=== PATIENT | female | born 1970 | race Caucasian/White ===

== ENCOUNTER → 2018-04-16 12:22 | Outpatient (CLI) | payer BC, SELFPAY ==
[2018-04-16 13:23] LABS: Alanine Aminotransferase 29 U/L (12-78); Albumin Level 3.4 gm/dL (3.4-5.0); Albumin/Globulin Ratio 0.8 (1.1-1.8); Alkaline Phosphatase 95 U/L (46-116); Anion Gap 13.2 mEq/L (5-15); Aspartate Amino Transferase 18 U/L (15-37); Bilirubin,Total 0.4 mg/dL (0.2-1.0); Blood Urea Nitrogen 12 mg/dL (7-18); Calcium 9.9 mg/dL (8.5-10.1); Carbon Dioxide 29 mmol/L (21.0-32.0); Chloride 96 mmol/L (98-107); Chol/HDL Ratio 6.7 (1-3.5); Cholesterol 248 mg/dL (140-200); Creatinine,Serum 0.71 mg/dL (0.55-1.02); Estimated Glomerular Filt Rate 88 ml/min (>60); GFR (African American) 106 ML/MIN (>60); Globulin 4.1 gm/dl (1.3-3.2); Glucose 363 mg/dL (74-106); HDL Cholesterol 37 mg/dL (29-89); LDL Cholesterol 138 mg/dL (0-130); Potassium 4.2 mmoL/L (3.5-5.1); Sodium 134 mmol/L (136-145); Total Protein,Serum 7.5 gm/dL (6.4-8.2); Triglycerides 363 mg/dL (30-200); VLDL Cholesterol 73 mg/dL (0-40)
== END ==
PROVIDERS: Visit Provider Nurse Practitioner Family
DX: Z00.00 Encounter for general adult medical examination without abnormal findings (principal); I10 Essential (primary) hypertension
CPT/HCPCS: 36415; 80053; 80061

== ENCOUNTER → 2018-05-06 11:02 | Outpatient (CLI) | payer BC, SELFPAY ==
--- NOTE | 2018-05-06 11:07 | MM_ITS ---
MM Dig screening mamm BI w/CAD CAD Screening COMPARISON: Digital mammograms 05/09/2015 and 04/22/2017 INDICATION: There is no personal or family history of breast cancer. TECHNIQUE: Standard CC and MLO images were obtained. R2 CAD reviewed. FINDINGS: The breasts are composed primarily of fat with minimal scattered fiber glandular densities in each breast. There is no new or suspicious lesion in either breast and no suspicious microcalcifications. IMPRESSION: Fibrofatty parenchyma with no suspicious lesion seen BI-RADS Category: 1 Negative RECOMMENDED FOLLOW-UP: 1YR - 1 YEAR FOLLOW-UP (A letter has been sent to the patient regarding results of the study.)
[2018-05-06 12:57] LABS: Hemoglobin A1C 10.9 % (0.0-7.0)
== END ==
PROVIDERS: Family Provider Nurse Practitioner Family; PCP Internal Medicine Adolescent Medicine; Visit Provider Nurse Practitioner Family
DX: Z12.31 Encounter for screening mammogram for malignant neoplasm of breast (principal)
CPT/HCPCS: 36415; 77067; 83036

== ENCOUNTER → 2019-02-26 13:09 | Outpatient (CLI) | payer BC, SELFPAY ==
[2019-02-26 14:36] LABS: Hemoglobin A1C 9.2 % (0.0-7.0)
[2019-02-26 14:50] LABS: Alanine Aminotransferase 21 U/L (12-78); Albumin Level 3.3 gm/dL (3.4-5.0); Albumin/Globulin Ratio 0.8 (1.1-1.8); Alkaline Phosphatase 90 U/L (46-116); Anion Gap 16.4 mEq/L (5-15); Aspartate Amino Transferase 10 U/L (15-37); Bilirubin,Total 0.5 mg/dL (0.2-1.0); Blood Urea Nitrogen 13 mg/dL (7-18); Calcium 9.6 mg/dL (8.5-10.1); Carbon Dioxide 24 mmol/L (21.0-32.0); Chloride 101 mmol/L (98-107); Chol/HDL Ratio 3.9 (1-3.5); Cholesterol 157 mg/dL (140-200); Creatinine,Serum 0.77 mg/dL (0.55-1.02); Estimated Glomerular Filt Rate 80 ml/min (>60); Free Thyroxine Index 3.3 ug/dL (5.93-13.13); GFR (African American) 96 ML/MIN (>60); Globulin 4.2 gm/dl (1.3-3.2); Glucose 209 mg/dL (74-106); HDL Cholesterol 40 mg/dL (29-89); LDL Cholesterol 86 mg/dL (0-130); Magnesium 1.7 mg/dL (1.4-2.2); Potassium 4.4 mmoL/L (3.5-5.1); Sodium 137 mmol/L (136-145); T4 (Thyroxine) 10.8 ug/dl (4.7-13.3); Thyroid Stimulating Hormone 1.64 uIU/ml (0.358-3.740); Total Protein,Serum 7.5 gm/dL (6.4-8.2); Triglycerides 155 mg/dL (30-200); Triiodothryronine (T3) Uptake 31 % (31-39); VLDL Cholesterol 31 mg/dL (0-40)
[2019-02-28 18:28] LABS: Vitamin B12 563 pg/mL (232-1245)
== END ==
PROVIDERS: PCP Internal Medicine Adolescent Medicine; Visit Provider Internal Medicine Adolescent Medicine
DX: E11.9 Type 2 diabetes mellitus without complications (principal); R53.82 Chronic fatigue, unspecified
CPT/HCPCS: 36415; 80053; 80061; 82607; 82652; 83036; 83735; 84436; 84443; 84479

== ENCOUNTER → 2019-11-11 09:52 | Outpatient (CLI) | payer BC, SELFPAY ==
--- NOTE | 2019-11-11 09:54 | MM_ITS ---
PROCEDURE: MM DIG SCREENING MAMM BI W/CAD CLINICAL INDICATION: SCREENING There is no personal or family history of breast cancer COMPARISON: [facility] DIG MAMM-SCREEN KAROLYN from 05/09/2015 [facility] DIG MAMM-SCREEN KAROLYN W/CAD from 04/22/2017 [facility] MM Dig screening mamm BI w/CAD from 05/06/2018 TECHNIQUE: Standard CC and MLO images were obtained. R2 CAD reviewed. FINDINGS: The breasts are composed primarily of fat with minimal scattered fibroglandular densities throughout each breast. There are couple of benign-appearing microcalcifications right breast. There is no suspicious lesion and no suspicious microcalcifications. IMPRESSION: Fatty type breast parenchyma with no suspicious lesions seen BI-RAD Category: 2 Benign Finding(s) FOLLOW-UP: 1YR 1 Year Follow-up (A letter has been sent to the patient regarding results of the study.) Dictated by: Dr. Hany Ugalde MD 11/15/2019 10:[address] Hany Ugalde MD in [place] 11/15/2019 10:40
== END ==
PROVIDERS: PCP Internal Medicine Adolescent Medicine; Visit Provider Internal Medicine Adolescent Medicine
DX: Z12.31 Encounter for screening mammogram for malignant neoplasm of breast (principal)
CPT/HCPCS: 77067

== ENCOUNTER → 2020-07-24 11:30 | Outpatient (CLI) | payer BC, SELFPAY ==
[2020-07-24 12:19] LABS: Hemoglobin A1C 7.2 % (4.0-6.0)
[2020-07-24 12:37] LABS: Chloride 101 mmol/L (98-107); Potassium 4.5 mmoL/L (3.5-5.1); Sodium 139 mmol/L (136-145)
[2020-07-24 12:40] LABS: Alanine Aminotransferase 30 U/L (12-78); Albumin Level 4.3 g/dl (3.5-5.0); Albumin/Globulin Ratio 1.3 (1.1-1.8); Alkaline Phosphatase 108 U/L (38-126); Anion Gap 16.5 mEq/L (5-15); Aspartate Amino Transferase 31 U/L (14-36); Bilirubin,Total 0.4 mg/dl (0.2-1.3); Blood Urea Nitrogen 16 mg/dl (7-17); Calcium 10.3 mg/dl (8.4-10.2); Carbon Dioxide 26 mmol/L (22.0-30.0); Chol/HDL Ratio 3.5 (1-3.5); Cholesterol 187 mg/dl (140-200); Estimated Glomerular Filt Rate 106 ml/min (>60); GFR (African American) 128 ML/MIN (>60); Globulin 3.3 g/dL (1.3-3.2); Glucose 135 mg/dl (74-100); HDL Cholesterol 53 mg/dl (40-60); Total Protein,Serum 7.6 g/dl (6.3-8.2); Triglycerides 178 mg/dl (30-150); VLDL Cholesterol 36 mg/dL (0-40)
[2020-07-24 12:52] LABS: Direct LDL Cholesterol 114.84 mg/dL (100-129)
== END ==
PROVIDERS: Visit Provider Internal Medicine Adolescent Medicine
DX: E11.9 Type 2 diabetes mellitus without complications (principal)
CPT/HCPCS: 36415; 80053; 80061; 82043; 83036

== ENCOUNTER → 2021-03-02 12:45 | Outpatient (CLI) | payer BC, SELFPAY ==
--- NOTE | 2021-03-02 12:52 | XR_ITS ---
PROCEDURE: XR KNEE LT 3V CLINICAL INDICATION: LT MEDIAL KNEE PAIN COMPARISON: No exams were available for comparison FINDINGS: No acute fractures or dislocations. Bone density is normal. Tricompartmental degenerative changes with joint space loss, worse in the medial compartment. Subchondral sclerosis, and tricompartmental osteophyte formation is noted. No suprapatellar joint effusion. Quadriceps tendon enthesopathy is noted. Fabella is noted. No other soft tissue abnormality. IMPRESSION: Tricompartmental degenerative changes as described above. No acute fractures or dislocations. Dictated by: Shelby River 03/02/2021 15:03 [place] River in [place] 03/02/2021 15:03
== END ==
PROVIDERS: PCP Internal Medicine Adolescent Medicine; Visit Provider Internal Medicine Adolescent Medicine
DX: M25.562 Pain in left knee (principal)
CPT/HCPCS: 73562

== ENCOUNTER → 2021-04-02 08:59 | Outpatient (CLI) | payer BC, SELFPAY ==
--- NOTE | 2021-04-02 09:02 | XR_ITS ---
PROCEDURE: XR KNEE LT 4V CLINICAL INDICATION: Lt knee pain COMPARISON: CR XR KNEE LT 3V from 03/02/2021 FINDINGS: No fracture or dislocation. No lytic or blastic change. There is normal mineralization. There are mild osteoarthritic changes involving all 3 compartments greatest at the medial compartment. Other findings:There is mild lateral tibial subluxation of approximately 5 mm . 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
== END ==
PROVIDERS: PCP Internal Medicine Adolescent Medicine; Visit Provider Orthopaedic Surgery
DX: M25.562 Pain in left knee (principal)
CPT/HCPCS: 73564

== ENCOUNTER → 2022-06-25 10:20 | Outpatient (CLI) | payer BC, SELFPAY ==
--- NOTE | 2022-06-25 10:24 | MM_ITS ---
PROCEDURE INFORMATION: Exam: MG Bilateral Screening 3D Mammography Exam date and time: 06/25/2022 10:23 AM Age: 51 years old Clinical indication: Screening examination TECHNIQUE: Imaging protocol: Bilateral Screening tomosynthesis and 2D mammography including computer-aided detection (CAD) when performed. COMPARISON: 1. MG MM DIG SCREENING MAMM BI W/CAD 11/11/2019 10:04 AM 2. MG [facility] MM Dig screening mamm BI w/CAD 05/06/2018 11:12 AM FINDINGS: MAMMOGRAPHY: Breast composition: The breasts are almost entirely fatty. Mass: None. Architectural distortion: None. Calcifications: No suspicious calcifications. Asymmetric density: None. Skin thickening: None. Axillary adenopathy: None. IMPRESSION: No mammographic evidence of malignancy. Annual screening is recommended unless otherwise clinically indicated. ASSESSMENT: BI-RADS Category 1: Negative
== END ==
PROVIDERS: PCP Internal Medicine Adolescent Medicine; Visit Provider Internal Medicine Adolescent Medicine
DX: Z12.31 Encounter for screening mammogram for malignant neoplasm of breast (principal)
CPT/HCPCS: 77063; 77067

== ENCOUNTER → 2022-07-22 16:41 | Outpatient (CLI) | payer BC, SELFPAY | PROVIDERS: PCP Internal Medicine Adolescent Medicine; Visit Provider Internal Medicine | DX: Z01.812 Encounter for preprocedural laboratory examination (principal); Z20.822 Contact with and (suspected) exposure to COVID-19; Z12.11 Encounter for screening for malignant neoplasm of colon | CPT/HCPCS: C9803; U0003; U0005 ==

== ENCOUNTER 2022-07-24 10:11 | Day surgery (SDC) | payer BC, SELFPAY ==
[2022-07-22 10:53] VITALS: BMI 34.7
[2022-07-24 10:35] VITALS: BP 148/80; PULSE 74; RESP 17; TEMP 36.6; O2SAT 97
[2022-07-24 10:47] LABS: POC Glucose,Bedside 125 (70-110)
--- NOTE | 2022-07-24 11:35 | EXP.ANES.CKL ---
PFSH PFSH Medical History (Updated 07/24/22 @ 10:35 by Shaylee Alicea, RN) Normal colonoscopy Surgical History (Updated 07/24/22 @ 10:35 by Shaylee Alicea, RN) History of pancreatectomy Family History (Updated 07/24/22 @ 10:33 by Shaylee Alicea, RN) Other Colon cancer Congestive heart failure Heart disease Social History Smoking Status: Never smoker second hand exposure: No alcohol intake: never substance use type: denies use current occupational status: employed household members: spouse housing: house current occupation: [employer] current occupational exposures/hazards: No caffeine: Yes
[2022-07-24 11:39] VITALS: O2SAT 97
[2022-07-24 12:02] VITALS: BP 100/66; PULSE 78; RESP 16; TEMP 36.9; O2SAT 98
--- NOTE | 2022-07-24 12:02 | HMH.SCOPE ---
Procedure: Date: 07/24/22 Patient Date of :: 1970 Procedure Performed:: Colonoscopy Indications:: The patient is a 51 year old who presents for surveillance colonoscopy for history of colon polyps. There is a family history of colon cancer Performing Provider:: Angel Pillai MD Referring Provider:: Kourtney Menjivar APRN Sedation:: See RN notes Procedure:: After placing the patient in the left lateral decubitus position, the colonoscopy was gently inserted into the rectum and under direct visualization advanced to the cecum which was identified by transillumination in the right lower quadrant, identification of the ileocecal valve, appendiceal orifice, and cecal strap. Color, texture, mucosa, and anatomy of the colon were carefully examined with the scope. Findings:: Anal canal: normal Rectum: Internal hemorrhoids. Sessile polyp 4 mm in size. Removed with cold snare polypectomy Sigmoid colon: normal without polyps or inflammatory changes Descending colon: normal without polyps or inflammatory changes Splenic flexure: normal Transverse colon: normal without polyps or inflammatory changes Hepatic flexure: Diverticulosis Ascending colon: Sessile polyp 6-7 mm in size. Removed with cold snare polypectomy Cecum: normal Terminal ileum: not visualized Impression: Polyp of ascending colon and rectum Diverticulosis Recommendations:: Await pathology results Repeat colonoscopy in 3 years Complications:: none Estimated blood obtained (mL): 0
[2022-07-24 12:12] VITALS: BP 110/73; PULSE 78; RESP 16; TEMP 36.9; O2SAT 96
[2022-07-24 12:22] VITALS: BP 140/78; PULSE 77; RESP 18; TEMP 36.9; O2SAT 100
[2022-07-24 12:32] VITALS: BP 128/88; PULSE 72; RESP 18; TEMP 36.9; O2SAT 99
== END 2022-07-24 12:46 | disposition home or self-care (01) ==
PROVIDERS: PCP Internal Medicine Adolescent Medicine; Visit Provider Internal Medicine
PROC: 0DJD8ZZ Inspection of Lower Intestinal Tract, Via Natural or Artificial Opening Endoscopic (ICD-10-PCS; CPT 45378; principal; 2022-07-24 11:30)
DX: Z12.11 Encounter for screening for malignant neoplasm of colon (principal); K63.5 Polyp of colon; Z86.010 Personal history of colon polyps
CPT/HCPCS: 45385; 82962

== ENCOUNTER → 2023-06-26 10:00 | Outpatient (CLI) | payer BC, SELFPAY ==
--- NOTE | 2023-06-26 10:04 | MM_ITS ---
PROCEDURE INFORMATION: Exam: MG Bilateral Screening 3D Mammography Exam date and time: 06/26/2023 10:17 AM Age: 52 years old Clinical indication: Screening. No family history of breast cancer. TECHNIQUE: Imaging protocol: Bilateral Screening tomosynthesis and 2D mammography including computer-aided detection (CAD) when performed. COMPARISON: 1. MG MM DIG SCREENING MAMM BI W/CAD 06/25/2022 10:23 AM 2. MG MM DIG SCREENING MAMM BI W/CAD 11/11/2019 10:04 AM 3. MG [facility] MM Dig screening mamm BI w/CAD 05/06/2018 11:12 AM 4. MG [facility] DIG MAMM-SCREEN KAROLYN W/CAD 04/22/2017 8:40 AM FINDINGS: MAMMOGRAPHY: Breast composition: The breasts are almost entirely fatty. Mass: None. Architectural distortion: None. Calcifications: No suspicious calcifications. Asymmetric density: None. Skin thickening: None. Axillary adenopathy: None. IMPRESSION: No mammographic evidence of malignancy. Annual screening is recommended unless otherwise clinically indicated. ASSESSMENT: BI-RADS Category 1: Negative
== END ==
PROVIDERS: PCP Internal Medicine Adolescent Medicine; Visit Provider Internal Medicine Adolescent Medicine
DX: Z12.31 Encounter for screening mammogram for malignant neoplasm of breast (principal)
CPT/HCPCS: 77063; 77067

== ENCOUNTER 2024-01-26 15:42 | Outpatient (CLI) | payer BC, SELFPAY ==
--- NOTE | 2024-01-26 15:55 | XR_ITS ---
FINAL REPORT CLINICAL HISTORY: RT WRIST PAIN FINDINGS: AP, oblique, and lateral views of the right wrist were obtained. There is no prior exam for comparison. There is no acute fracture or dislocation. The joint spaces are preserved. The soft tissues are normal. IMPRESSION: No acute osseous abnormality of the right wrist. If pain persists, MR is recommended. Authenticated and ERN
--- NOTE | 2024-01-26 15:55 | XR_ITS ---
FINAL REPORT CLINICAL HISTORY: RT HAND PAIN FINDINGS: AP, lateral and oblique views of the right hand were obtained. There is no prior exam for comparison. There is no acute fracture or dislocation. The joint spaces are preserved. The soft tissues are normal. IMPRESSION: No acute osseous abnormality of the right hand. Authenticated and ERN
--- NOTE | 2024-01-26 15:55 | XR_ITS ---
FINAL REPORT CLINICAL HISTORY: Right shoulder pain. FINDINGS: 3 views of the right shoulder were obtained. There is no acute fracture or dislocation. There is mild acromioclavicular joint degenerative disease without evidence of acromioclavicular separation. No acute soft tissue abnormality. IMPRESSION: No acute osseous abnormality of the right shoulder. Authenticated and ERN
== END 2024-01-26 23:59 ==
LOC: RAD 15:43
PROVIDERS: PCP Internal Medicine Adolescent Medicine; Visit Provider Internal Medicine Adolescent Medicine
DX: M25.511 Pain in right shoulder (principal); M25.531 Pain in right wrist; M79.641 Pain in right hand
CPT/HCPCS: 73030; 73110; 73130

== ENCOUNTER 2024-03-17 09:39 | Outpatient (CLI) | payer OTHER, SELFPAY ==
[2024-03-17 10:12] LABS: Basophils # 0.1 K/mm3 (0-0.2); Basophils % 1.2 % (0.1-2.0); Eosinophils # 0.3 K/mm3 (0.0-0.4); Eosinophils % 2.4 % (0.1-12.0); Hematocrit 43.7 % (37.0-47.0); Hemoglobin 14.1 g/dL (12.2-16.2); Lymphocytes # 4.9 K/mm3 (0.7-4.5); Lymphocytes % 40.8 % (10-50); Mean Corpuscular HGB Conc 32.4 g/dL (31.8-35.4); Mean Corpuscular Volume 95.6 fl (81-99); Mean Platelet Volume 8.1 fl (7.4-10.4); Monocytes # 0.8 K/mm3 (0.1-1.0); Monocytes % 6.6 % (1.7-9.3); Neutrophils # 5.9 K/mm3 (1.8-7.8); Platelet Count 421 K/mm3 (142-424); Red Blood Count 4.57 M/mm3 (4.20-5.40); Red Cell Distribution Width 13.4 % (11.5-17.5)
== END 2024-03-17 23:59 ==
LOC: LAB 09:40
PROVIDERS: PCP Internal Medicine Adolescent Medicine; Visit Provider Internal Medicine Medical Oncology
DX: D72.820 Lymphocytosis (symptomatic) (principal)
CPT/HCPCS: 36415; 85025

== ENCOUNTER 2024-04-01 08:59 | Day surgery (SDC) | payer OTHER, SELFPAY ==
[2024-03-31 10:00] VITALS: BMI 34.3
[2024-04-01] MEDS: LACTATED RINGERS 1000ML 1,000 ML 25 ML IV (09:28)
[2024-04-01 09:29] VITALS: BP 152/84; PULSE 79; RESP 18; TEMP 36.7; O2SAT 96
[2024-04-01 09:38] LABS: POC Glucose,Bedside 175 (70-110)
--- NOTE | 2024-04-01 10:07 | EXP.ANES.CKL ---
[facility] Disclaimer: The information contained in this section may have been updated after the patient was seen, as this information can be updated by other users. Medical History Normal colonoscopy Surgical History History of pancreatectomy Family History Other Colon cancer Congestive heart failure Heart disease Social History Smoking Status: Never smoker second hand exposure: No alcohol intake: never substance use type: denies use current occupational status: unemployed Travel in the last 8 weeks: None household members: spouse housing: house current occupation: DIRECTOR OF [employer] current occupational exposures/hazards: No caffeine: Yes do you feel safe at home: Yes victim of physical abuse: No victim of emotional abuse: No victim of sexual abuse: No would you like helpful sources: No [facility] Anesthesia Checklist Patient Identification Patient Identification: Verbal (Name & ) Structural Data Admitted From: Home Planned Operative Procedure/s: egd,colonoscopy Consent for Planned Operative Procedure(s) Verified: Yes Airway Assessment Mallampati Score:: Class II C-Spine Mobility Assessed: Yes TMJ Mobility Assessed: Yes Dentition: Good Dentition Neurological Assessment Level of Consciousness: Awake, Alert and Appropriate Anesthesia Plan Anesthesia Risk discussed: Yes Anesthesia Plan: Verified ASA Class: II Anesthesia Type: MAC
[2024-04-01 10:21] VITALS: O2SAT 96
--- NOTE | 2024-04-01 10:42 | HMH.SCOPE ---
Procedure: Date: 04/01/24 Patient Date of :: 1970 Procedure Performed:: EGD and dilation Indications:: Dysphagia Performing Provider:: Desmond Betts MD Referring Provider:: Rafa Ledesma Sedation:: Propofol Procedure:: The gastroscope was gently passed through the incisoral orifice into the oral cavity and under direct visualization the esophagus was intubated. The endoscope was passed down the esophagus, through the stomach, and into the duodenum. Color, texture, mucosa, and anatomy of the esophagus, stomach, and duodenum were carefully examined with the scope. Findings:: Oropharynx: normal Esophagus: normal, schatzki's ring noted, dilated with 58F bougie dilator EG Junction: intact at 40 cm, small hiatus hernia Cardia: normal Fundus: normal Body: normal Antrum: normal Duodenal bulb: normal Duodenum (second and third portion): normal Impression: Schatzki's ring dilated Small hiatus hernia Recommendations:: Repeat dilation in about THREE years or so as clinically indicated Complications:: None Estimated blood obtained (mL): 0 Colonoscopy Component Colonoscopy Component Was a colonoscopy performed during today's procedure?: No
[2024-04-01 10:44] VITALS: BP 132/88; PULSE 82; RESP 16; TEMP 36.2; O2SAT 95
--- NOTE | 2024-04-01 10:45 | HMH.SCOPE ---
Procedure: Date: 04/01/24 Patient Date of :: 1970 Procedure Performed:: Screening colonoscopy Indications:: History of polyps and family history of colon cancer Performing Provider:: Desmond Betts MD Referring Provider:: Rafa Ledesma Sedation:: Propofol Procedure:: After placing the patient in the left lateral decubitus position, the colonoscopy was gently inserted into the rectum and under direct visualization advanced to the cecum which was identified by transillumination in the right lower quadrant, identification of the ileocecal valve, appendiceal orifice, and cecal strap. Color, texture, mucosa, and anatomy of the colon were carefully examined with the scope. Findings:: Anal canal: normal Rectum: normal Sigmoid colon: normal without polyps or inflammatory changes Descending colon: normal without polyps or inflammatory changes Splenic flexure: normal Transverse colon: normal without polyps or inflammatory changes Hepatic flexure: normal Ascending colon: normal without polyps or inflammatory changes Cecum: normal Terminal ileum: not visualized Impression: Normal colonoscopy Exam Recommendations:: Follow up examination in about FIVE years or so, sooner if clinically indicated in view of history of polyps and family history. Complications:: None Estimated blood obtained (mL): 0 Colonoscopy Component Colonoscopy Component Was a colonoscopy performed during today's procedure?: Yes Recommended follow up colonoscopy of at least 10 years?: No If no, follow up colonoscopy recommended in ___ years?: Five Reason for not recommending >/= 10 yr follow-up interval?: Hx of polyps
[2024-04-01 10:54] VITALS: BP 104/71; PULSE 82; RESP 18; TEMP 36.2; O2SAT 96
[2024-04-01 11:04] VITALS: BP 114/71; PULSE 79; RESP 18; TEMP 36.2; O2SAT 96
== END 2024-04-01 11:28 | disposition home or self-care (01) ==
PROVIDERS: PCP Internal Medicine Adolescent Medicine; Visit Provider Internal Medicine Gastroenterology
PROC: 0DJ08ZZ Inspection of Upper Intestinal Tract, Via Natural or Artificial Opening Endoscopic (ICD-10-PCS; CPT 43235; principal; 2024-04-01 10:30)
DX: R13.10 Dysphagia, unspecified (principal); K22.2 Esophageal obstruction; K44.9 Diaphragmatic hernia without obstruction or gangrene; Z12.11 Encounter for screening for malignant neoplasm of colon; Z86.010 Personal history of colon polyps; Z80.0 Family history of malignant neoplasm of digestive organs; Z79.899 Other long term (current) drug therapy
CPT/HCPCS: 43248; 45378; 82962

== ENCOUNTER 2024-04-08 12:43 | Outpatient (CLI) | payer OTHER, SELFPAY ==
--- NOTE | 2024-04-08 13:07 | CT_ITS ---
FINAL REPORT CLINICAL HISTORY: ENLARGED LYMPHNODES,LEUKOCYTOSIS FINDINGS: Axial CT images of the chest were obtained with contrast. Coronal reformatted images were also obtained. This study was performed with techniques to keep radiation doses as low as reasonably achievable, (ALARA). Individualized dose reduction techniques using automated exposure control or adjustment of mA and/or KV according to the patient's size were employed. There is no evidence of mediastinal or hilar mass or adenopathy.No axillary mass or adenopathy is identified. On lung window images, no pulmonary mass or dominant pulmonary nodule is identified. There is mild bibasilar atelectasis. Limited images of the upper abdomen reveal fatty infiltration of the liver. There is a 15 mm increased attenuation focus in the lateral right hepatic lobe. There is a 2nd, 13 mm focus in the posterior right hepatic lobe. Findings are worrisome for hepatic masses. There is mild gallbladder wall thickening. 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 IMPRESSION: Findings worrisome for hepatic masses. This could be further evaluated with follow-up CT or liver MRI. Reviewed, Interpreted and Dictated by Bipin Hu III, MD Transcribed by Celsa Zavala Authenticated and [facility]
--- NOTE | 2024-04-08 13:07 | CT_ITS ---
FINAL REPORT TECHNIQUE: Thin section axial CT images were obtained through the neck after intravenous contrast administration. Coronal and sagittal reformats were also obtained. This study was performed with techniques to keep radiation doses as low as reasonably achievable (ALARA). Individualized dose reduction techniques using automated exposure control or adjustment of mA and/or kV according to the patient''s size were employed. CLINICAL HISTORY: ENLARGED LYMPHNODES,LEUKOCYTOSIS FINDINGS: The nasopharynx, oropharynx, hypopharynx and larynx are unremarkable. The thyroid gland is unremarkable. There is near total opacification of the right maxillary sinus. Multiple small and borderline sized mediastinal nodes are identified, favor reactive. There is an 8 mm left parotid nodule, may represent a parotid lymph node versus parotid nodule such as an adenoma. Right neck subcutaneous calcifications are identified. There is no acute osseous abnormality. IMPRESSION: Left parotid nodule, may represent a lymph node versus parotid nodule. Reviewed, Interpreted and Dictated by Bipin Hu III, MD Transcribed by Celsa Zavala Authenticated and [facility]
[2024-04-08 13:19] LABS: Blood Urea Nitrogen 19 mg/dl (7-17); Estimated Glomerular Filt Rate 87 ml/min (>60); GFR (African American) 106 ML/MIN (>60)
[2024-04-08] MEDS: SODIUM CHLORIDE 0.9% 10ML SYR (RAD ONLY) 10 ML IV (14:03)
[2024-04-08] MEDS: IOPAMIDOL-370 (76%);100ML BOTTLE 100 ML IV (14:03)
== END 2024-04-08 23:59 | disposition home or self-care (01) ==
LOC: RAD 12:44
PROVIDERS: PCP Internal Medicine Adolescent Medicine; Visit Provider Internal Medicine Medical Oncology
DX: D72.828 Other elevated white blood cell count (principal); R59.0 Localized enlarged lymph nodes
CPT/HCPCS: 36415; 70491; 71260; 82565; 84520; Q9967

== ENCOUNTER 2024-09-07 10:18 | Outpatient (CLI) | payer OTHER, SELFPAY ==
--- NOTE | 2024-09-07 10:21 | MM_ITS ---
PROCEDURE INFORMATION: Exam: MG Bilateral Screening 3D Mammography Exam date and time: 09/07/2024 10:11 AM Age: 53 years old Clinical indication: Screening examination TECHNIQUE: Imaging protocol: Bilateral Screening tomosynthesis and 2D mammography including computer-aided detection (CAD) when performed. COMPARISON: 1. MG MM DIG SCREENING MAMM BI W/CAD 06/26/2023 10:17 AM 2. MG MM DIG SCREENING MAMM BI W/CAD 06/25/2022 10:23 AM FINDINGS: MAMMOGRAPHY: Breast composition: There are scattered areas of fibroglandular density. Mass: None. Architectural distortion: None. Calcifications: No suspicious calcifications. Asymmetric density: None. Skin thickening: None. Axillary adenopathy: None. IMPRESSION: No mammographic evidence of malignancy. Annual screening is recommended unless otherwise clinically indicated. ASSESSMENT: BI-RADS Category 1: Negative.
== END 2024-09-07 23:59 | disposition home or self-care (01) ==
LOC: RAD 10:19
PROVIDERS: PCP Internal Medicine Adolescent Medicine; Visit Provider Nurse Practitioner Family
DX: Z12.31 Encounter for screening mammogram for malignant neoplasm of breast (principal)
CPT/HCPCS: 77063; 77067